=== PATIENT | male | born 1965 ===

== ENCOUNTER → 2016-08-29 | Outpatient (CLI) | payer OTHER ==
[2016-08-29 18:29] LABS: BLOOD UREA NITROGEN 24 mg/dl (7-18); CARBON DIOXIDE 30 mmol/L (21-32); CHLORIDE 101 mmol/L (98-107); CREATININE 0.89 mg/dl (0.60-1.40); GLUCOSE 83 mg/dl (70-99); POTASSIUM 3.8 mmol/L (3.5-5.1); SODIUM 138 mmol/L (136-145)
[2016-08-29 18:34] LABS: PROSTATE SPECIFIC ANTIGEN 0.521 ng/ml (0.000-4.000)
== END | disposition home or self-care (01) ==
LOC: C.LABMFLN 14:40
PROVIDERS: ATTEND Family Medicine
DX: R68.82 Decreased libido (principal); Z12.5 Encounter for screening for malignant neoplasm of prostate